=== PATIENT | female | born 1995 | race Caucasian/White ===

== ENCOUNTER 2025-02-26 23:50 | Inpatient (IN) | payer OTHER ==
[~2025-02-26] VITALS: Ht 160 cm; Wt 71.2 kg
[2025-02-27 01:52] LABS: PLATELET COUNT (AUTO) 209 K/uL (150-450); RED BLOOD CELL COUNT(AUTO) 4.06 MIL/uL (4.00-5.20); RED CELL DISTRIBUTION WIDTH 13.7 % (11.5-14.5); WHITE BLOOD COUNT (AUTO) 4.2 K/uL (4.5-11.0)
[2025-02-27 02:02] LABS: CALCIUM, TOTAL 8.2 mg/dL (8.8-10.5); CREATININE 0.53 mg/dL (0.60-1.30); GLOMERULAR FILTR. RATE CALC > 60 mL/min (>60); GLUCOSE,RANDOM 98 mg/dL (70-110); SODIUM SERUM 139 mmol/L (136-145); UREA NITROGEN, BLOOD 14 mg/dL (7-18)
[2025-02-27 02:08] LABS: ALCOHOL, BLOOD (SERUM) < 3 mg/dL (0-10)
[2025-02-27 02:09] LABS: ASPARTATE AMINOTRANSFERASE 17 U/L (15-37); TOTAL PROTEIN, SERUM 6.7 g/dL (6.4-8.2)
[2025-02-27] MEDS ORDERED: ACETAMINOPHEN 325 MG TABLET PO PRN (05:45)
[2025-02-27] MEDS ORDERED: LORazepam 2 MG/ML VIAL IVP PRN (05:45)
[2025-02-27] MEDS ORDERED: MAGNESIUM HYDROXIDE SUSPENSION 30 ML UDCUP PO PRN (05:45)
[2025-02-27] MEDS: 1: MAGNESIUM SULFATE 2 GM, MVI, ADULT NO.1 WITH VIT K 10 ML, THIAMINE 100 MG, FOLIC ACID IV SCH (06:29)
[2025-02-27] MEDS: FAMOTIDINE 20 MG TABLET PO SCH (09:02)
[2025-02-27 12:16] LABS: APPEARANCE,URINE CLEAR (CLEAR); GLUCOSE, URINE (UA) NEGATIVE (NEGATIVE); LEUKOCYTE ESTERASE ,URINE NEGATIVE (NEGATIVE); NITRATE,URINE NEGATIVE (NEGATIVE); OCCULT BLOOD,URINE NEGATIVE (NEGATIVE); PH,URINE DRUG SCREEN 6.5 (5.0-8.0); SPECIFIC GRAVITIY, URINE 1.015 (1.003-1.030)
[2025-02-27 12:35] LABS: ALCOHOL, URINE DRUG SCREEN NEGATIVE (NEGATIVE); AMPHET/METH SCREEN,URINE POSITIVE (NEGATIVE); BARBITURATE SCREEN, URINE NEGATIVE (NEGATIVE); CANNABINOID SCREEN,URINE NEGATIVE (NEGATIVE); COCAINE SCREEN,URINE POSITIVE (NEGATIVE); METHADONE SCREEN, URINE NEGATIVE (NEGATIVE)
[2025-02-27 19:30] VITALS: BP 99/65; PULSE 77; RESP 18; TEMP 98.4; O2SAT 96
[2025-02-28 04:46] VITALS: BP 104/56; PULSE 75; RESP 18; TEMP 98.2; O2SAT 98
[2025-02-28 08:02] VITALS: BP 123/75; PULSE 75; RESP 18; TEMP 98.4; O2SAT 97
[2025-02-28] MEDS: ONDANSETRON HCL 4 MG/2 ML VIAL IVP PRN (08:45)
[2025-02-28 16:48] VITALS: BP 104/68; PULSE 78; RESP 18; TEMP 98.1; O2SAT 98
[2025-02-28 20:00] VITALS: BP 124/71; PULSE 79; RESP 18; TEMP 98.2; O2SAT 100
[2025-03-01 04:00] VITALS: BP 107/60; PULSE 76; RESP 18; TEMP 98; O2SAT 99
[2025-03-01 08:00] VITALS: BP 130/83; PULSE 66; RESP 19; TEMP 98.8; O2SAT 97
[2025-03-01 16:00] VITALS: BP 131/81; PULSE 68; RESP 16; TEMP 98.4; O2SAT 100
[2025-03-01 20:00] VITALS: BP 125/73; PULSE 69; RESP 16; TEMP 98.6; O2SAT 98
[2025-03-01] MEDS: ZOLPIDEM TARTRATE 5 MG TABLET PO PRN (21:20)
[2025-03-02 04:56] VITALS: RESP 16
[2025-03-02 08:20] VITALS: BP 122/80; PULSE 69; RESP 18; TEMP 98.6; O2SAT 100
[2025-03-02] MEDS: SODIUM CHLORIDE 0.9% 1,000 ML IV ONE (11:02)
[2025-03-02 16:11] LABS: PLATELET COUNT (AUTO) 282 K/uL (150-450); RED BLOOD CELL COUNT(AUTO) 5.29 MIL/uL (4.00-5.20); RED CELL DISTRIBUTION WIDTH 13.6 % (11.5-14.5); WHITE BLOOD COUNT (AUTO) 10.9 K/uL (4.5-11.0)
[2025-03-02 16:19] LABS: CALCIUM, TOTAL 9.0 mg/dL (8.8-10.5); CREATININE 0.72 mg/dL (0.60-1.30); GLOMERULAR FILTR. RATE CALC > 60 mL/min (>60); GLUCOSE,RANDOM 104 mg/dL (70-110); SODIUM SERUM 138 mmol/L (136-145); UREA NITROGEN, BLOOD 16 mg/dL (7-18)
[2025-03-02 20:20] VITALS: BP 124/84; PULSE 68; RESP 18; TEMP 98.1; O2SAT 97
[2025-03-03 04:22] VITALS: BP 124/75; PULSE 69; RESP 18; TEMP 98.1; O2SAT 100
[2025-03-03] MEDS ORDERED: POTASSIUM CHL 10 MEQ/WATER 50 ML IV PRN (07:45)
[2025-03-03 08:15] VITALS: BP 116/79; PULSE 64; RESP 18; TEMP 97.9; O2SAT 99
[2025-03-03] MEDS: POTASSIUM CHLORIDE 20 MEQ ER TABLET PO PRN (09:06)
[2025-03-03] MEDS: DEXTROSE 5%-0.45% SODIUM CHL 1,000 ML IV SCH (09:16)
[2025-03-03 20:00] VITALS: BP 129/76; PULSE 58; RESP 18; TEMP 98.6; O2SAT 96
[2025-03-04 04:00] VITALS: BP 131/81; PULSE 65; RESP 16; TEMP 97.5; O2SAT 98
[2025-03-04 09:05] VITALS: BP 116/73; PULSE 64; RESP 18; TEMP 98; O2SAT 99
[2025-03-04] MEDS: LOPERAMIDE HCL 2 MG CAPSULE PO PRN (12:15)
[2025-03-04 22:18] VITALS: BP 125/80; PULSE 56; RESP 16; TEMP 98.6; O2SAT 97
[2025-03-05 07:53] VITALS: BP 121/64; PULSE 60; RESP 18; TEMP 97.9; O2SAT 100
[2025-03-05 08:17] LABS: PLATELET COUNT (AUTO) 311 K/uL (150-450); RED BLOOD CELL COUNT(AUTO) 4.84 MIL/uL (4.00-5.20); RED CELL DISTRIBUTION WIDTH 13.5 % (11.5-14.5); WHITE BLOOD COUNT (AUTO) 6.9 K/uL (4.5-11.0)
[2025-03-05 08:28] LABS: CALCIUM, TOTAL 8.3 mg/dL (8.8-10.5); CREATININE 0.57 mg/dL (0.60-1.30); GLOMERULAR FILTR. RATE CALC > 60 mL/min (>60); GLUCOSE,RANDOM 113 mg/dL (70-110); SODIUM SERUM 137 mmol/L (136-145); UREA NITROGEN, BLOOD 8 mg/dL (7-18)
[2025-03-05] MEDS ORDERED: FAMO20 PO (11:49)
[2025-03-05] MEDS ORDERED: ACET-2247 PO (11:50)
[2025-03-05] MEDS ORDERED: LOPE-232 PO (11:51)
[2025-03-05] MEDS ORDERED: ONDA-104 PO (11:52)
== END 2025-03-05 19:24 | DRG 92 ==
LOC: EMS 23:52 → EDH 02-27 05:33 → 6N 02-27 10:09
PROVIDERS: ADMIT Internal Medicine; ATTEND Internal Medicine
DX: G92.8 Other toxic encephalopathy (principal); F10.139 Alcohol abuse with withdrawal, unspecified; F11.13 Opioid abuse with withdrawal; F15.10 Other stimulant abuse, uncomplicated; F14.10 Cocaine abuse, uncomplicated; Y90.0 Blood alcohol level of less than 20 mg/100 ml
CPT/HCPCS: 80048; 80076; 80307; 81003; 84132; 84702; 85025; 99285; G0480; J2405; J3411; J3475; J3490; J7030